=== PATIENT | female | born 1990 | race Caucasian/White ===

== ENCOUNTER 2017-03-24 21:11 | Emergency (ER) | payer OTHER ==
[~2017-03-24] VITALS: Ht 165.1 cm; Wt 63.2 kg
[~2017-03-24 21:11] MED LIST: ALBU1AER9 INH; MULT1CHW4 PO
[2017-03-24 21:17] VITALS: Ht 165.1 cm; Wt 63.2 kg
[2017-03-24] MEDS ORDERED: AMOXICIL/CLAVU 875MG HOME PACK PO ONE (21:30)
[2017-03-24] MEDS ORDERED: DEXAMETHASONE SOD INJ 10 MG/ML VIAL PO ONE (21:30)
[2017-03-24] MEDS ORDERED: AMOX875T PO (21:36)
[2017-03-24] MEDS ORDERED: PRED50TA PO (21:36)
[2017-03-24 21:39] VITALS: BP 125/80; PULSE 89; TEMP 37.1; O2SAT 95
--- NOTE | 2017-03-24 23:10 | EMERGENCY ROOM VISIT NOTE ---
History First contact with patient: 21:24 Chief Complaint: ALLERGIC REACTION Stated Complaint: SORE THROAT,NUMB TONGUE FROM WASP STING Nursing Triage Summary: see triage note History of Present Illness The patient is a 26 year old female who presents to the Emergency Room with complaints of throat discomfort and swelling to the back of her throat for the past day. Patient states a couple days ago she was stung by wasp in her left axilla region. There is minimal swelling here. No known anaphylaxis to bees. Patient denies chest pain, dyspnea, fevers, neck stiffness, headache, nausea, vomiting, diarrhea, facial swelling, rashes. She is tolerating by mouth fluids and food. Review of Systems See HPI for pertinent positives & negatives. A total of 10 systems reviewed and were otherwise negative. Past Medical/Surgical History Medical Problems: (1) No Known Active Medical Problems Appendectomy, tonsillectomy Social History Smoking Status: Current Every Day Smoker Alcohol Use: occasionally Marital Status: single Occupation Status: employed Current/Historical Medications Scheduled Albuterol (Proair Hfa), 1-2 PUFF INH QAM Amoxicillin & Pot Clavulanate (Augmentin 875-125 mg), 1 TAB PO BID Multiple Vitamins W/ Minerals (Adult Gummy), 1 CHW PO DAILY Prednisone (Prednisone), 50 MG PO DAILY Miscellaneous Medications Albuterol (Proair Hfa), 1-2 PUFF INH Physical Exam Vital Signs Date Time Temp Pulse Resp B/P (MAP) Pulse Ox O2 Delivery O2 Flow Rate FiO2 03/24/17 21:39 37.1 89 17 125/80 95 03/24/17 21:17 37.1 89 17 125/80 95 Room Air Pain Rating (0-10): 0 Physical Exam VITALS: Vitals are noted on the nurse's note and reviewed by myself. Vital signs stable. GENERAL: Pleasant female speaking in full sentences, in no acute distress, nondiaphoretic, well-developed well-nourished. SKIN: The skin was without rashes, erythema, edema, or bruising. There is no tenting of the skin. Capillary reflex less than 2 seconds. HEAD: Normocephalic atraumatic. EARS: External auditory canals clear, tympanic membranes pearly garcia without erythema or effusion bilaterally. EYES: Pupils equal round and reactive to light and accommodation. Conjunctivae without injection, sclerae without icterus. Extraocular movements intact. NOSE: Patent, turbinates without inflammation or discharge. No sinus tenderness. MOUTH: Mucous membranes moist. Pharynx without erythema or exudate. Uvula midline erythematous and edematous concerning for uvulitis without airway compromise. Airway patent. Tongue does not deviate. NECK: Supple without nuchal rigidity. No lymphadenopathy. No thyromegaly. Cervical spine is nontender. No JVD. No meningeal signs HEART: Regular rate and rhythm without murmurs gallops or rubs. LUNGS: Clear to auscultation bilaterally without wheezes, rales or rhonchi. No dullness to percussion. No retractions or accessory muscle use. ABDOMEN: Positive bowel sounds x 4. Normal tympanic percussion. Soft, nontender, without masses or organomegaly. Tolliver sign negative. No guarding or rebound tenderness. MUSCULOSKELETAL: No muscle atrophy, erythema, or edema noted. NEURO: Patient was alert and oriented to person place and time. Normal sensation to light and sharp touch. No focal neurological deficits. Medical Decision & Procedures Medications Administered Medications (Trade) Dose Ordered Sig/Thony Route Start Time Stop Time Status Last Admin Dose Admin Dexamethasone Sodium Phosphate (Decadron Inj) 10 mg NOW ONCE PO 03/24/17 21:30 03/24/17 21:32 DC 03/24/17 21:37 10 MG Amoxicillin/ Clavulanate Potassium (Augmentin 875MG Home Pack) 1 homepack UD ONCE PO 03/24/17 21:30 03/24/17 21:32 DC 03/24/17 21:38 1 HOMEPACK ED Course Prior records/ancillary studies reviewed. Triage Nursing notes reviewed. The patient's history was concerning for a sore throat. Differential diagnosis: Etiologies such as uvulitis, viral syndrome, tonsillitis, streptococcal pharyngitis, mononucleosis, peritonsillar abscess, retropharyngeal abscess, influenza, as well as others were entertained. ER treatment provided: Decadron, Augmentin On reassessment the patient felt better. Diagnostics interpreted by me: Deferred This appears to be consistent with uvulitis. Patient started on steroids and antibiotics. Patient was neurovascularly and neurologically intact. Patient is well-appearing. Patient is tolerating fluids. Patient did not have an acute abdomen on exam. Patient was ambulating without difficulties. Patient was advised to follow-up with family care in a few days or here in the ER sooner for severe pain, fevers, chest pain, abdominal pain, worsening signs or symptoms or as needed. Patient no signs of airway compromise. She was well- appearing. No signs of Uriel angina. NO Signs of anaphylaxis or angioedema. By the evaluation outlined above emergent etiologies such as peritonsillar abscess, retropharyngeal abscess, otitis, pneumonia, meningitis, sepsis, bacteremia, as well as others were deemed relatively unlikely. The pt informed about the findings as listed above. All questions were answered and pleased with the treatment. Return instructions were outlined and the patient was discharged in stable condition. Outpatient prescription management: Prednisone, Augmentin Referral: The patient was referred back to their primary care physician for follow-up in 2 to 3 days for a recheck of the current condition. Medical Decision As above Medication Reconcilliation Current Medication List: was personally reviewed by me Blood Pressure Screening Patient's blood pressure: Normal blood pressure Impression Primary Impression: Uvulitis Departure Information Dispostion Home / Self-Care Condition GOOD Prescriptions Amoxicillin & Pot Clavulanate (Augmentin 875-125 mg) 1 Tab Tab 1 TAB PO BID for 9 Days, #18 TAB Prov: Ramandeep Main PA-C 03/24/17 Prednisone (Prednisone) 50 Mg Tab 50 MG PO DAILY for 4 Days, #4 TAB Prov: Ramandeep Main PA-C 03/24/17 Forms HOME CARE DOCUMENTATION FORM, Work Instructions, Return To Work: 2 days IMPORTANT VISIT INFORMATION Patient Instructions [facility], ED Uvulitis Additional Instructions Amoxicillin Clavulanate (Augmentin) 875mg: Take one pill twice daily for 10 days for your infection. All antibiotics can cause diarrhea. If this occurs and you feel worse or it does not resolve in 1-2 days follow up with your doctor or return to the Emergency Department as this could be signs of serious underlying problems. Any medication can cause an allergic reaction, stop the pills immediately and return to the ER for rash, hives, breathing difficulties, or swelling. Ibuprofen(Motrin, Advil) may be used for fever or pain. Use 600mg every six hours as needed. Take with food. Avoid using more than 2400mg in a 24 hour period. Do not use 2400mg per day for more than three consecutive days without physician direction. Prolonged inappropriate use can lead to stomach upset or ulcers. (AND/OR) Acetaminophen(Tylenol) may be used for fever or pain. Use 1000mg every six hours as needed. Avoid using more than 4000mg in a 24 hour period. Prednisone 50mg: Once daily until the prescription is finished. It is best to take this earlier in the day as some patients note occasional difficulty falling asleep when taken in the late evening. Continue current medications. Return to the emergency department for worsening of your headache, neck stiffness, fevers, swelling of your face, lips, tongue, or throat, difficulty breathing, vomiting, or as needed. Follow-up with your primary care physician in 2 to 3 days for a recheck of your current condition. Work Instructions Return To Work: 2 days
== END 2017-03-24 21:40 | disposition home or self-care (01) ==
LOC: C.EDB 21:14 → C.EDA 21:40
DX: K12.2 Cellulitis and abscess of mouth (principal); F17.210 Nicotine dependence, cigarettes, uncomplicated